=== PATIENT | male | born 2000 | race Caucasian/White ===

== ENCOUNTER 2021-04-06 15:00 | Emergency (ER) | payer OTHER ==
[~2021-04-06] VITALS: Ht 190.5 cm; Wt 104.0 kg
[2021-04-06 16:17] LABS: HEMATOCRIT 48.7 % (39.0-50.0); HEMOGLOBIN 16.2 g/dl (14.0-18.0); MEAN CELL VOLUME 88.5 fL CALC (80.0-100.0); MEAN CORPUSCULAR HGB 29.5 pG CALC (26.0-32.0); MEAN CORPUSCULAR HGB CONC 33.3 g/dL CAL (32.0-36.0); NEUT# 8.27 thou/uL (1.82-7.42); RED BLOOD COUNT 5.5 mill/uL (4.70-6.10); RED CELL DISTRI WIDTH 11.9 % (11.5-15.5)
[2021-04-06 16:31] LABS: ALBUMIN 4.5 g/dL (3.2-5.0); ALKALINE PHOSPHATASE 96 u/l (38-126); ANION GAP 14 (6-22 (CALC)); BILIRUBIN, TOTAL 0.9 mg/dL (0.0-1.4); BUN 17 mg/dL (9-20); BUN/CREATININE RATIO 21 (12-20 (CALC)); CARBON DIOXIDE 26 mmol/l (22-30); CHLORIDE 104 mmol/l (95-108); CREATININE 0.8 mg/dL (0.7-1.3); GFR > 60 ML/MIN (>=60 (CALC)); GFR FOR AFR.AMER. > 60 ML/MIN (>=60 (CALC)); POTASSIUM 3.9 mmol/l (3.5-5.1); SGOT/AST 24 u/l (17-59); SODIUM 140 mmol/l (137-146); TOTAL PROTEIN 7.8 g/dL (6.3-8.2)
[2021-04-06] MEDS ORDERED: ZOFRAN4 MG/TAB PO (18:40)
[2021-04-06 18:50] VITALS: BP 126/66
== END 2021-04-06 18:45 | disposition home or self-care (01) | DRG 392 ==
LOC: ED 15:00
DX: R11.2 Nausea with vomiting, unspecified (principal); R19.7 Diarrhea, unspecified; Z20.822 Contact with and (suspected) exposure to COVID-19